=== PATIENT | male | born 1985 | race Hispanic/Latino ===

== ENCOUNTER 2023-02-07 19:38 | Emergency (ER) | payer MEDICAID, OTHER ==
[~2023-02-07] VITALS: Ht 175.3 cm; Wt 104.3 kg
[2023-02-07] MEDS ORDERED: IBUP-2070 PO (21:49)
[2023-02-07] MEDS ORDERED: IBUPROFEN 600 MG TABLET PO ONE (22:00)
[2023-02-07] MEDS ORDERED: TETANUS/DIPHTHERIA TOXOID [ADULT] 0.5 ML VIAL IM ONE (22:00)
[2023-02-07 23:46] VITALS: BP 138/84; PULSE 74; RESP 18; O2SAT 98
== END 2023-02-07 23:49 | disposition home or self-care (01) ==
LOC: EDH 19:38
DX: S56.427A Laceration of extensor muscle, fascia and tendon of right little finger at forearm level, initial encounter (principal); S61.216A Laceration without foreign body of right little finger without damage to nail, initial encounter; X58.XXXA Exposure to other specified factors, initial encounter; Y93.89 Activity, other specified; Y92.89 Other specified places as the place of occurrence of the external cause; Y99.8 Other external cause status
CPT/HCPCS: 12001; 73140; 90471; 90714